=== PATIENT | female | born 1980 | race Caucasian/White ===

== ENCOUNTER 2020-07-16 17:39 | Emergency (ER) | payer BC, OTHER ==
[~2020-07-16 17:39] MED LIST: BACTRIM DS TAB1 EACH PO; BENTYL 20MG TAB20 MG PO; CLEOCIN HCL300 MG PO; KEFLEX CAP 500500 MG PO; NORCO 5-325 TA1 EACH PO; ZOFRAN ODT4 MG PO; ZOFRAN4 MG PO
[2020-07-16] MEDS ORDERED: NAPROSYN500 MG PO (19:38)
[2020-07-16] MEDS ORDERED: CYCLOBENZAPRINE10 MG PO (19:39)
== END 2020-07-16 20:03 | disposition home or self-care (01) ==
LOC: ER1 17:39
DX: S50.11XA Contusion of right forearm, initial encounter (principal); V86.99XA Unspecified occupant of other special all-terrain or other off-road motor vehicle injured in nontraffic accident, initial encounter; Y92.830 Public park as the place of occurrence of the external cause
CPT/HCPCS: 73030; 73060; 73080; 73090; 99283; J2270; J2405

== ENCOUNTER → 2020-07-27 | Outpatient (CLI) | payer BC, OTHER ==
[~2020-07-27] MED LIST changes: +CYCLOBENZAPRINE10 MG PO; +NAPROSYN500 MG PO
== END ==
LOC: US 13:00
DX: M79.601 Pain in right arm (principal); M79.89 Other specified soft tissue disorders
CPT/HCPCS: 73060; 73080; 73090; 93971

== ENCOUNTER → 2020-08-23 | Outpatient (CLI) | payer BC, OTHER | LOC: US 08-05 10:45 | DX: M79.601 Pain in right arm (principal); M79.89 Other specified soft tissue disorders; S40.021A Contusion of right upper arm, initial encounter | CPT/HCPCS: 76882 ==

== ENCOUNTER → 2020-11-18 | Outpatient (CLI) | payer OTHER | LOC: LBRF 11:28 | DX: N39.0 Urinary tract infection, site not specified (principal) | CPT/HCPCS: 87086 ==

== ENCOUNTER → 2020-12-01 | Outpatient (CLI) | payer OTHER | LOC: CT 07:44 | DX: R31.9 Hematuria, unspecified (principal); R10.9 Unspecified abdominal pain | CPT/HCPCS: Q9967 ==

== ENCOUNTER 2021-01-08 17:34 | Emergency (ER) | payer OTHER ==
[2021-01-08 18:28] LABS: HEMOGLOBIN 13.8 gm/dl (12.3-15.3); RED BLOOD COUNT 4.54 M/UL (4.00-5.10); WHITE BLOOD COUNT 8.3 K/UL (4.5-11.0)
[2021-01-08 19:03] LABS: BUN/CREATININE RATIO 17 (0-10)
== END 2021-01-08 21:49 | disposition home or self-care (01) ==
LOC: ER1 17:34
PROVIDERS: Physician Assistant
DX: R07.9 Chest pain, unspecified (principal); R22.2 Localized swelling, mass and lump, trunk
CPT/HCPCS: 71045; 80053; 82550; 82553; 83690; 83874; 84484; 85025; 85379; 93005; 99285

== ENCOUNTER 2021-07-23 16:26 | Emergency (ER) | payer BC, OTHER ==
[2021-07-23 17:57] LABS: HEMOGLOBIN 15.4 gm/dl (12.3-15.3); RED BLOOD COUNT 5.13 M/UL (4.00-5.10); WHITE BLOOD COUNT 8.8 K/UL (4.5-11.0)
[2021-07-23 18:38] LABS: BUN/CREATININE RATIO 19 (0-10)
[2021-07-23] MEDS ORDERED: ZOFRAN ODT 4 MG4 MG PO (21:47)
[2021-07-23] MEDS ORDERED: TAMIFLU75 MG PO (21:47)
[2021-07-23] MEDS ORDERED: OMNICEF 300 MG300 MG PO (21:47)
== END 2021-07-23 22:25 | disposition home or self-care (01) ==
LOC: ER1 16:26
PROVIDERS: Physician Assistant
DX: J10.1 Influenza due to other identified influenza virus with other respiratory manifestations (principal); N39.0 Urinary tract infection, site not specified; J32.9 Chronic sinusitis, unspecified; Z20.822 Contact with and (suspected) exposure to COVID-19
CPT/HCPCS: 0240U; 70450; 71045; 80053; 81001; 82550; 82553; 83605; 83690; 83735; 84484; 84703; 85025; 85379; 87040; 93005; 99284; J7030; Q9967

== ENCOUNTER → 2021-09-12 | Outpatient (CLI) | payer BC, OTHER ==
[~2021-09-12] MED LIST changes: +OMNICEF 300 MG300 MG PO; +TAMIFLU75 MG PO; +ZOFRAN ODT 4 MG4 MG PO
[2021-09-12 17:33] LABS: RED BLOOD COUNT 4.67 M/UL (4.00-5.10); WHITE BLOOD COUNT 9.5 K/UL (4.5-11.0)
[2021-09-12 17:53] LABS: BUN/CREATININE RATIO 20 (0-10)
== END ==
LOC: RAD 16:23
PROVIDERS: Nurse Practitioner Family
DX: M54.50 Low back pain, unspecified (principal); M25.551 Pain in right hip; R31.9 Hematuria, unspecified; M25.552 Pain in left hip; R10.13 Epigastric pain; R30.0 Dysuria; N39.0 Urinary tract infection, site not specified; K21.9 Gastro-esophageal reflux disease without esophagitis; R53.83 Other fatigue; E53.8 Deficiency of other specified B group vitamins; E55.9 Vitamin D deficiency, unspecified; M47.817 Spondylosis without myelopathy or radiculopathy, lumbosacral region; M16.0 Bilateral primary osteoarthritis of hip
CPT/HCPCS: 36415; 72100; 73522; 74018; 80053; 82607; 84439; 84443; 85025